=== PATIENT | female | born 1995 | race Caucasian/White ===

== ENCOUNTER 2016-11-18 22:23 | Observation (INO) | payer MEDICAID ==
[~2016-11-18 22:23] MED LIST: ALLERGY EYE DROPS; KEFLEX500 MG PO; NORCO 5-325 TA1 EACH PO; PRENA1 CHEW TA1.4 M1 PO; PROMETHAZINE HC25 M3 PO; PROTONIX20 M2 PO; VENTOLIN HFA18 G2
[2016-11-18 22:55] LABS: URINE BILIRUBIN NEGATIVE (NEG); URINE BLOOD NEGATIVE (NEG); URINE GLUCOSE (UA) NEGATIVE (NEG); URINE KETONE MODERATE (NEG); URINE LEUKOCYTE ESTERASE POSITIVE (NEG); URINE NITRITE NEGATIVE (NEG); URINE PROTEIN SMALL (NEG)
[2016-11-18 22:57] LABS: URINE APPEARANCE HAZY; URINE COLOR YELLOW
[2016-11-18 23:05] LABS: URINE RBC RARE /[HPF] (0-5); URINE WBC RARE /[HPF] (0-5)
[2016-11-18 23:06] LABS: URINE AMORPHOUS 1+; URINE MUCUS 1+
[2017-02-01] MEDS ORDERED: PERCOCET 5-3251 EACH PO (11:13)
== END 2016-11-19 01:02 ==
LOC: LDR 22:23
PROVIDERS: ADMIT Obstetrics & Gynecology
DX: O99.89 Other specified diseases and conditions complicating pregnancy, childbirth and the puerperium (principal); R11.2 Nausea with vomiting, unspecified; Z3A.24 24 weeks gestation of pregnancy; Z79.899 Other long term (current) drug therapy; Z88.8 Allergy status to other drugs, medicaments and biological substances; Z91.040 Latex allergy status; Z87.891 Personal history of nicotine dependence; Z90.89 Acquired absence of other organs; Z98.890 Other specified postprocedural states
CPT/HCPCS: J2405